=== PATIENT | female | born 1945 | race Caucasian/White ===

== ENCOUNTER → 2016-08-08 | Outpatient (CLI) | payer MEDICARE ==
[~2016-08-08] MED LIST: MAALOX DPS30 ML PO; MARINOL2.5 MG PO; MEGACE DPS40 MG PO; PROTONIX40 MG PO; SURFAK240 MG PO; TYLENOL325 MG PO; WELLBUTRIN XL150 MG PO; ZIAC PO; ZYPREXA5 MG PO
== END | disposition home or self-care (01) ==
LOC: PTH.S 15:12 → RAD.S 16:00
DX: K86.2 Cyst of pancreas (principal); K76.0 Fatty (change of) liver, not elsewhere classified